=== PATIENT | male | born 1995 | race Caucasian/White ===

== ENCOUNTER 2018-06-02 15:02 | Emergency (ER) | payer MEDICAID ==
[~2018-06-02] VITALS: Ht 167.6 cm; Wt 61.2 kg
[2018-06-02 15:11] VITALS: BP 132/72
--- NOTE | 2018-06-02 15:14 | NUR ---
PATIENT AMBULATED TO BED 2.
--- NOTE | 2018-06-02 15:15 | NUR ---
Note undone in EDM - 06/02/18 at 1534 by THU PATIENT PRESENTS TO ED WITH R LOWER QUADRANT ABD PAIN . PT STATES SHARP PAIN COMES AND GOES STARTING YESTERDAY MORNING. STAES HE HAS BEEN NAUSOUS BUT HAS NOT VOMITED; SKIN IS PINK/WARM/DRY; AAOX4 WITH EVEN AND STEADY GAIT; LUNGS CLEAR BL; HR EVEN AND REGULAR; PT DENIES ANY FEVER, CP, SOB, OR COUGH AT THIS TIME; PATIENT STATES PAIN OF 8/10 AT THIS TIME; VSS; PATIENT POSITIONED FOR COMFORT; HOB ELEVATED; BEDRAILS UP X2; BED DOWN. ER MADE AWARE OF PT STATUS.
--- NOTE | 2018-06-02 15:34 | NUR ---
PATIENT PRESENTS TO ED WITH R LOWER QUADRANT ABD PAIN . PT STATES SHARP PAIN COMES AND GOES STARTING YESTERDAY MORNING. STAES HE HAS BEEN NAUSOUS BUT HAS NOT VOMITED; SKIN IS PINK/WARM/DRY; AAOX4 WITH EVEN AND STEADY GAIT; LUNGS CLEAR BL; HR EVEN AND REGULAR; PT DENIES ANY FEVER, CP, SOB, OR COUGH AT THIS TIME; PATIENT STATES PAIN OF 7/10 AT THIS TIME; VSS; PATIENT POSITIONED FOR COMFORT; HOB ELEVATED; BEDRAILS UP X2; BED DOWN. ER MD MADE AWARE OF PT STATUS
--- NOTE | 2018-06-02 16:10 | NUR ---
DR BURKS AT BEDSIDE
[2018-06-02 16:26] VITALS: BP 136/74
== END 2018-06-02 16:27 | disposition home or self-care (01) ==
LOC: MED 15:02
DX: R10.31 Right lower quadrant pain (principal); R11.0 Nausea; R19.7 Diarrhea, unspecified; F12.10 Cannabis abuse, uncomplicated
CPT/HCPCS: 99282